=== PATIENT | female | born 2000 | race Caucasian/White ===

== ENCOUNTER 2022-05-13 21:58 | Emergency (ER) | payer OTHER | END 2022-05-14 01:34 | disposition home or self-care (01) | LOC: MW.ED 21:58 | DX: M25.511 Pain in right shoulder (principal) | CPT/HCPCS: 73030-26-RT; 73030-RT; 99283 ==

== ENCOUNTER 2022-11-11 11:19 | Emergency (ER) | payer OTHER ==
[2022-11-11] MEDS ORDERED: Diphtheria,Pertussis(Acell),Tetanus Vaccine 0.5 ML Syringe IM ONE (11:32)
[2022-11-11 14:59] LABS: HEPATITIS C AB# 0.11 INDEX (<0.8)
== END 2022-11-11 12:12 | disposition home or self-care (01) ==
LOC: MW.ED 11:19
DX: Z13.0 Encounter for screening for diseases of the blood and blood-forming organs and certain disorders involving the immune mechanism (principal); Z23 Encounter for immunization
CPT/HCPCS: 36415; 86706; 86803; 87340; 87389; 90471; 90715; 99283; 99283-25

== ENCOUNTER 2023-04-24 08:16 | Inpatient (IN) | payer OTHER ==
[2023-04-24] MEDS ORDERED: Carboprost Tromethamine 250 MCG/1 mL Vial IM PRN (10:16)
[2023-04-24] MEDS ORDERED: Water For Irrigation,Sterile 1,000 ML Container IRR PRN (10:16)
[2023-04-24] MEDS ORDERED: Lidocaine 1% 50 ML MDV INJECT PRN (10:16)
[2023-04-24] MEDS ORDERED: Misoprostol 200 MCG Tab PO PRN (10:16)
[2023-04-24] MEDS ORDERED: Sodium Chloride 0.9% 20 ML SDV IV PRN (10:16)
[2023-04-24] MEDS ORDERED: Sodium Chloride 0.9% 10 ML Syringe FLUSH PRN (10:16)
[2023-04-24] MEDS ORDERED: Methylergonovine 0.2 MG/1 ML Amp IM PRN (10:16)
[2023-04-24] MEDS ORDERED: Sodium Chloride 0.9% 2.5 ML Syringe FLUSH PRN (10:16)
[2023-04-24] MEDS ORDERED: Tranexamic Acid IN NACL,ISO-OS 1,000 MG in Premix Bag 1 BAG IV PRN ×2 (10:16)
[2023-04-24] MEDS ORDERED: Nalbuphine 10 MG/0.5 ML Syringe IVPUSH PRN (10:19)
[2023-04-24] MEDS ORDERED: Oxytocin/0.9 % Sodium Chloride 30 UNIT/500 ML BAG IV SCH (10:30)
[2023-04-24 10:32] LABS: HEMATOCRIT 36.8 % (37.0-47.0); HEMOGLOBIN 12.7 g/dL (12.0-16.0); MEAN CORPUSCULAR HEMOGLOBIN 27.7 pg (28.0-32.0); MEAN CORPUSCULAR HGB CONC 34.5 g/dL (32.0-36.0); MEAN CORPUSCULAR VOLUME 80.3 fL (83.0-99.0); MEAN PLATELET VOLUME 11.1 fL (9.4-12.3); PLATELET COUNT,PLT 211 K/uL (150-400); RED BLOOD CELL COUNT 4.58 M/uL (4.10-5.30); WHITE BLOOD CELL COUNT,WBC 11.57 K/uL (3.9-11.3)
[2023-04-24] MEDS ORDERED: Phenylephrine HCl 0.5 MG/5 ML AMP IVPUSH PRN (12:58)
[2023-04-24] MEDS ORDERED: ePHEDrine 50 MG/ML SDV IVPUSH PRN ×2 (12:58)
[2023-04-24] MEDS ORDERED: Ropivacaine HCl/PF 400 MG in Premix Bag 1 BAG EPIDUR SCH (13:00)
[2023-04-24] MEDS: Lactated Ringers 1,000 ML IV SCH ×3 (13:30→21:12)
[2023-04-24] MEDS ORDERED: dexmedeTOMIDine HCl 200 MCG/2 ML SDV ONE (14:05)
[2023-04-24] MEDS ORDERED: Bupivacaine 0.25% 10 ML SDV ONE (14:06)
[2023-04-25 00:43] LABS: BASOPHILS ABSOLUTE AUTO 0.01 K/uL (0.00-0.20); BASOPHILS PERCENT AUTO 0.1 % (0.0-1.0); EOSINOPHILS ABSOLUTE AUTO 0.01 K/uL (0.00-0.45); EOSINOPHILS PERCENT AUTO 0.1 % (0.0-6.0); HEMATOCRIT 30.3 % (37.0-47.0); HEMOGLOBIN 10.6 g/dL (12.0-16.0); IMMATURE GRAN ABSOLUTE AUTO 0.04 K/uL (0.00-0.05); IMMATURE GRAN PERCENT AUTO 0.3 % (0.0-0.4); LYMPHOCYTES PERCENT AUTO 10.9 % (24.0-44.0); MEAN CORPUSCULAR VOLUME 80.2 fL (83.0-99.0); MEAN PLATELET VOLUME 10.7 fL (9.4-12.3); MONOCYTES ABSOLUTE AUTO 1.08 K/uL (0.00-0.80); MONOCYTES PERCENT AUTO 7.9 % (0.0-8.0); NEUTROPHILS ABSOLUTE AUTO 11.11 K/uL (1.80-7.70); NEUTROPHILS PERCENT AUTO 80.7 % (41.0-71.0); PLATELET COUNT,PLT 171 K/uL (150-400); RED BLOOD CELL COUNT 3.78 M/uL (4.10-5.30); WHITE BLOOD CELL COUNT,WBC 13.75 K/uL (3.9-11.3)
[2023-04-25] MEDS ORDERED: Docusate Sodium 100 MG Cap PO PRN (09:05)
[2023-04-25] MEDS ORDERED: oxyCODONE 5 MG Tab PO PRN (09:05)
[2023-04-25] MEDS ORDERED: Witch Hazel Medicated Pads 40/Jar TOP PRN (09:05)
[2023-04-25] MEDS ORDERED: Lanolin 100% Cream 7 GM Tube TOP PRN (09:05)
[2023-04-25] MEDS ORDERED: Bisacodyl 10 MG Supp RECTAL PRN (09:05)
[2023-04-25] MEDS ORDERED: Acetaminophen 500 MG Tab PO PRN (09:05)
[2023-04-25] MEDS ORDERED: Benzocaine/Menthol 20%-0.5% Spray 78 GM Cannister TOP PRN (09:05)
[2023-04-25] MEDS: Ibuprofen 800 MG Tab PO PRN ×2 (09:36→23:59)
[2023-04-26 06:04] LABS: HEMATOCRIT 28.7 % (37.0-47.0); HEMOGLOBIN 9.6 g/dL (12.0-16.0)
== END 2023-04-26 19:50 | disposition home or self-care (01) | DRG 807 ==
LOC: MW.OB 08:16 → OBSVTOIN 04-25 09:05 → MW.OB 04-25 13:53
PROVIDERS: ADMIT Obstetrics & Gynecology Obstetrics; ATTEND Obstetrics & Gynecology Obstetrics
PROC: 10E0XZZ Delivery of Products of Conception, External Approach (ICD-10-PCS; principal; 2023-04-25)
PROC: 3E0R3BZ Introduction of Anesthetic Agent into Spinal Canal, Percutaneous Approach (ICD-10-PCS; 2023-04-25)
PROC: 00HU33Z Insertion of Infusion Device into Spinal Canal, Percutaneous Approach (ICD-10-PCS; 2023-04-25)
DX: O42.02 Full-term premature rupture of membranes, onset of labor within 24 hours of rupture (principal); Z37.0 Single live birth; O77.0 Labor and delivery complicated by meconium in amniotic fluid; Z3A.39 39 weeks gestation of pregnancy
CPT/HCPCS: 01967; 36415; 51702; 59025; 59409; 85014; 85018; 85025; 85027; 86592; 86850; 86900; 86901; A9270-GY; J2590; J2795; J3490; J7120

== ENCOUNTER 2024-01-21 08:26 | Day surgery (SDC) | payer OTHER ==
[~2024-01-21 08:26] MED LIST: Albuterol 0.083% 2.5 MG/3 ML Neb Soln NEB PRN; HYDROmorphone 1 MG/ML Syringe IVPUSH PRN; Metoclopramide 10 MG/2 ML SDV IVPUSH PRN; Morphine 2 MG/ML SYRINGE IVPUSH PRN; Naloxone 0.4 MG/ML SDV IVPUSH PRN; Ondansetron 4 MG/2 ML SDV IVPUSH PRN; droPERidol 5 MG/2 ML SDV IVPUSH PRN; fentaNYL 50 MCG/ML SDV IVPUSH PRN
[2024-01-21] MEDS: Lactated Ringers 1,000 ML IV SCH (08:48)
[2024-01-21] MEDS ORDERED: propofoL 50 ML ONE (09:22)
[2024-01-21] MEDS ORDERED: dexmedeTOMIDine HCl 200 MCG/2 ML SDV ONE (09:25)
[2024-01-21] MEDS ORDERED: fentaNYL 100 MCG/2 ML SDV ONE (09:25)
[2024-01-21] MEDS ORDERED: Dexamethasone 4 MG/ML 5 ML MDV ONE (10:31)
[2024-01-21] MEDS ORDERED: Ondansetron 4 MG/2 ML SDV ONE (10:31)
[2024-01-21] MEDS ORDERED: Ketorolac 30 MG/ML SDV ONE (10:44)
== END 2024-01-21 12:15 | disposition home or self-care (01) ==
LOC: MW.SDS 08:26
PROVIDERS: ATTEND Obstetrics & Gynecology
DX: O02.1 Missed abortion (principal)
CPT/HCPCS: 59820; J0131; J1100; J1885; J2405; J2704; J3010; J7120; J3490

== ENCOUNTER 2024-12-29 22:06 | Inpatient (IN) | payer OTHER ==
[2024-12-29] MEDS ORDERED: Sodium Chloride 0.9% 2.5 ML Syringe FLUSH PRN (22:12)
[2024-12-29] MEDS ORDERED: Ondansetron 4 MG/2 ML SDV IVPUSH PRN (22:12)
[2024-12-29] MEDS ORDERED: Water For Irrigation,Sterile 1,000 ML Container IRR PRN (22:12)
[2024-12-29] MEDS ORDERED: Carboprost Tromethamine 250 MCG/1 mL Vial IM PRN (22:12)
[2024-12-29] MEDS ORDERED: Sodium Chloride 0.9% 10 ML Syringe FLUSH PRN (22:12)
[2024-12-29] MEDS ORDERED: Butorphanol 1 MG/ML SDV IVPUSH PRN (22:12)
[2024-12-29] MEDS ORDERED: Ropivacaine HCl/PF 200 ML ONE (22:40)
[2024-12-29] MEDS ORDERED: dexmedeTOMIDine HCl 200 MCG/2 ML SDV ONE (22:40)
[2024-12-29] MEDS: Lactated Ringers 1,000 ML IV SCH (22:45)
[2024-12-29 22:55] LABS: MEAN PLATELET VOLUME 10.4 fL (9.4-12.3); NRBC ABSOLUTE 0.00 K/uL (0.00-0.02); NRBC PERCENT 0.0 /100WBC (0.0-0.2); PLATELET COUNT,PLT 194 K/uL (150-400); RED BLOOD CELL COUNT 3.87 M/uL (4.10-5.30); WHITE BLOOD CELL COUNT,WBC 11.01 K/uL (3.9-11.3)
[2024-12-29] MEDS: Ropivacaine HCl/PF 400 MG in Premix Bag 1 BAG EPIDUR SCH (22:55)
[2024-12-29] MEDS ORDERED: ePHEDrine 50 MG/ML SDV IVPUSH PRN (23:06)
[2024-12-29] MEDS ORDERED: dexmedeTOMIDine HCl 200 MCG/2 ML SDV EPIDUR SCH (23:15)
[2024-12-30] MEDS: Oxytocin/0.9 % Sodium Chloride 30 UNIT/500 ML BAG IV SCH (02:25)
[2024-12-30] MEDS ORDERED: Lanolin 100% Cream 7 GM Tube TOP PRN (03:18)
[2024-12-30] MEDS ORDERED: Benzocaine/Menthol 20%-0.5% Spray 78 GM Cannister TOP PRN (03:18)
[2024-12-30] MEDS ORDERED: Aluminum Hydroxide/Magnesium Hydroxide/Simethicone Susp 30 ML Cup PO PRN (03:18)
[2024-12-30] MEDS ORDERED: Witch Hazel Medicated Pads 40/Jar TOP PRN (03:18)
[2024-12-30] MEDS ORDERED: Measles, Mumps & Rubella Vaccine 0.5 ML SDV SUBCUT ONE (03:18)
[2024-12-30 03:34] LABS: PH,UMBILICAL ARTERIAL 7.28 (7.18-7.38); PH,UMBILICAL VENOUS 7.33 (7.25-7.45)
[2024-12-30 06:21] LABS: BASOPHILS ABSOLUTE AUTO 0.02 K/uL (0.00-0.20); BASOPHILS PERCENT AUTO 0.1 % (0.0-1.0); EOSINOPHILS ABSOLUTE AUTO 0.00 K/uL (0.00-0.45); EOSINOPHILS PERCENT AUTO 0.0 % (0.0-6.0); IMMATURE GRAN ABSOLUTE AUTO 0.06 K/uL (0.00-0.05); IMMATURE GRAN PERCENT AUTO 0.4 % (0.0-0.4); LYMPHOCYTES ABSOLUTE AUTO 1.57 K/uL (1.00-4.80); LYMPHOCYTES PERCENT AUTO 11.1 % (24.0-44.0); MEAN PLATELET VOLUME 9.8 fL (9.4-12.3); MONOCYTES ABSOLUTE AUTO 0.89 K/uL (0.00-0.80); MONOCYTES PERCENT AUTO 6.3 % (0.0-8.0); NEUTROPHILS ABSOLUTE AUTO 11.61 K/uL (1.80-7.70); NEUTROPHILS PERCENT AUTO 82.1 % (41.0-71.0); NRBC ABSOLUTE 0.00 K/uL (0.00-0.02); NRBC PERCENT 0.0 /100WBC (0.0-0.2); PLATELET COUNT,PLT 170 K/uL (150-400); RED BLOOD CELL COUNT 3.73 M/uL (4.10-5.30); WHITE BLOOD CELL COUNT,WBC 14.15 K/uL (3.9-11.3)
== END 2024-12-31 10:42 | disposition home or self-care (01) | DRG 807 ==
LOC: MW.OBCHECK 22:06 → MW.OB 22:07 → MW.OBCHECK 22:18 → OBSVTOIN 12-30 02:25 → MW.OB 12-30 08:30 → MW.MS 12-30 08:30 → MW.OB 12-30 13:56
PROVIDERS: ADMIT Obstetrics & Gynecology; ATTEND Obstetrics & Gynecology
PROC: 10E0XZZ Delivery of Products of Conception, External Approach (ICD-10-PCS; principal; 2024-12-30)
PROC: 3E0R3BZ Introduction of Anesthetic Agent into Spinal Canal, Percutaneous Approach (ICD-10-PCS; 2024-12-30)
PROC: 3E0R3BZ Introduction of Anesthetic Agent into Spinal Canal, Percutaneous Approach (ICD-10-PCS; 2024-12-30)
DX: O48.0 Post-term pregnancy (principal); Z37.0 Single live birth; Z3A.40 40 weeks gestation of pregnancy; Z98.890 Other specified postprocedural states; O32.6XX0 Maternal care for compound presentation, not applicable or unspecified; O69.1XX0 Labor and delivery complicated by cord around neck, with compression, not applicable or unspecified
CPT/HCPCS: 36415; 59409; 82803; 85025; 85027; 86592; 86850; 86900; 86901; A9270-GY; J0665; J2371; J2590; J2795; J7120